=== PATIENT | male | born 1940 | race Caucasian/White ===

== ENCOUNTER 2016-11-25 11:32 | Inpatient (IN) | payer MEDICARE, OTHER ==
[~2016-11-25] VITALS: Ht 190.5 cm; Wt 89.4 kg
[2016-11-25 11:32] VITALS: BP_SYST 120
[~2016-11-25 11:32] MED LIST: AMLO2.5T2 PO; ASPI81TA2 PO; FURO-150 PO; HYDR-4100 PO; HYDR25TA4 PO; MULT-1117 PO; WARF2TAB2 PO; WARF4TAB2 PO
[2016-11-25] MEDS ORDERED: IPRATROPIUM/ALBUTEROL SULFATE 3 ML AMPUL.NEB INH ONE (11:45)
[2016-11-25 12:29] LABS: BLOOD GAS PH 7.451 (7.350-7.450)
[2016-11-25 12:30] LABS: BASOPHILS % (AUTO) 0.3 % (0.0-2.0); EOSINOPHILS # (AUTO) 0.1 K/uL (0.0-0.4); EOSINOPHILS % (AUTO) 1.4 % (0.0-4.0); HEMATOCRIT 31.6 % (36-54); HEMOGLOBIN 10.1 g/dL (14.0-18.0); LYMPHOCYTES # (AUTO) 1.2 K/uL (1.0-5.5); LYMPHOCYTES % (AUTO) 16.8 % (20.5-51.5); MEAN CORPUSCULAR HEMOGLOBIN 30 pg (27-31); MEAN CORPUSCULAR HGB CONC 32 % (32-36); MEAN CORPUSCULAR VOLUME 95 fL (79.0-98.0); MONOCYTES # (AUTO) 0.4 K/uL (0.0-1.0); MONOCYTES % (AUTO) 6.1 % (1.7-9.3); NEUTROPHILS # (AUTO) 5.3 K/uL (1.8-7.7); NEUTROPHILS % (AUTO) 75.4 % (40.0-70.0); RED BLOOD CELL COUNT(AUTO) 3.32 MIL/uL (4.2-6.2); RED CELL DISTRIBUTION WIDTH 13.4 % (9.0-15.0)
[2016-11-25 12:30] LABS: BLOOD GAS BASE EXCESS 13.4 mmol/L (-3.0-3.0); BLOOD GAS COHb% 7.6 % (0.5-1.5); BLOOD GAS HHB 4.3 % (0.0-6.0); BLOOD O2Hb% 87.8 % (94.0-97.0)
[2016-11-25 12:40] LABS: CALCIUM 8.2 mg/dL (8.4-11.0); CHLORIDE 97 mmol/L (98-107); CREATININE 2.12 mg/dL (0.55-1.30); GLUCOSE 110 mg/dL (70-99); POTASSIUM 4.7 mmol/L (3.5-5.1); SODIUM SERUM 134 mmol/L (136-145); UREA NITROGEN, BLOOD 64 mg/dL (8-21)
[2016-11-25 12:43] LABS: ANION GAP < 1 (5-15)
[2016-11-25 12:45] LABS: ALANINE AMINOTRANSFERASE 26 U/L (12-78); ALBUMIN 1.9 g/dL (3.4-4.8); ASPARTATE AMINOTRANSFERASE 47 U/L (10-37); INR 3.2 (0.80-1.20); TOTAL BILIRUBIN 0.2 mg/dL (0.0-1.0); TOTAL PROTEIN, SERUM 5.2 g/dL (6.4-8.3)
[2016-11-25 12:51] LABS: PROTHROMBIN TIME 36.3 SECS (9.5-12.5)
[2016-11-25 12:56] LABS: PLATELET COUNT (AUTO) 85 K/uL (130-430)
[2016-11-25] MEDS ORDERED: methylPREDNISolone SOD SUCC/PF 62.5 MG/ML VIAL IVP ONE (14:30)
[2016-11-25] MEDS ORDERED: DIPHENHYDRAMINE INJ 50 MG/ML VIAL IVP ONE (14:45)
[2016-11-25 15:21] VITALS: BP_SYST 125
[2016-11-25 15:24] VITALS: BP_SYST 129
[2016-11-25] MEDS ORDERED: ALBUTEROL SULFATE 0.083% 2.5 MG/3 ML VIAL.NEB INH PRN (16:00)
[2016-11-25] MEDS ORDERED: IPRATROPIUM BROM 0.5 MG/2.5 ML VIAL.NEB (ATROVENT) INH PRN (16:00)
[2016-11-25] MEDS ORDERED: FUROSEMIDE 40 MG/4 ML VIAL IVP ONE (16:15)
[2016-11-25 17:14] VITALS: BP_SYST 125
[2016-11-25] MEDS ORDERED: BACL20TA PO (17:34)
[2016-11-25] MEDS ORDERED: MONT10TA22 (17:34)
[2016-11-25] MEDS: ALBUTEROL SULFATE 0.083% 2.5 MG/3 ML VIAL.NEB INH SCH ×2 (19:35→23:43)
[2016-11-25] MEDS: IPRATROPIUM BROM 0.5 MG/2.5 ML VIAL.NEB (ATROVENT) INH SCH ×2 (19:35→23:43)
[2016-11-25 19:40] VITALS: BP_SYST 104
[2016-11-25] MEDS: HYDROcodone/ACETAMIN 10-325 MG TAB PO PRN (19:45)
[2016-11-25] MEDS: FUROSEMIDE 40 MG/4 ML VIAL IVP SCH ×2 (21:00→23:18)
[2016-11-25] MEDS ORDERED: FLUTICASONE 250 mCg/SALMETEROL 50 mCg DISKUS W.DEV INH SCH (21:00)
[2016-11-25] MEDS: ONDANSETRON HCL 4 MG/2 ML VIAL IVP PRN (23:17)
[2016-11-26 00:40] VITALS: BP_SYST 122
[2016-11-26] MEDS: HYDROcodone/ACETAMIN 10-325 MG TAB PO PRN ×2 (02:36→18:15)
[2016-11-26] MEDS: ALBUTEROL SULFATE 0.083% 2.5 MG/3 ML VIAL.NEB INH SCH ×6 (03:00→23:00)
[2016-11-26] MEDS: IPRATROPIUM BROM 0.5 MG/2.5 ML VIAL.NEB (ATROVENT) INH SCH ×6 (03:00→23:00)
[2016-11-26 03:43] VITALS: BP_SYST 111
[2016-11-26] MEDS: ASPIRIN 81 MG TAB.CHEW PO SCH (04:22)
[2016-11-26] MEDS: ONDANSETRON HCL 4 MG/2 ML VIAL IVP PRN ×3 (04:56→21:41)
[2016-11-26 07:06] LABS: BASOPHILS % (AUTO) 0.1 % (0.0-2.0); HEMATOCRIT 28.9 % (36-54); HEMOGLOBIN 9.3 g/dL (14.0-18.0); LYMPHOCYTES # (AUTO) 0.6 K/uL (1.0-5.5); LYMPHOCYTES % (AUTO) 11.9 % (20.5-51.5); MEAN CORPUSCULAR HEMOGLOBIN 31 pg (27-31); MEAN CORPUSCULAR HGB CONC 32 % (32-36); MEAN CORPUSCULAR VOLUME 96 fL (79.0-98.0); MONOCYTES # (AUTO) 0.1 K/uL (0.0-1.0); NEUTROPHILS # (AUTO) 4.2 K/uL (1.8-7.7); PLATELET COUNT (AUTO) 83 K/uL (130-430); RED BLOOD CELL COUNT(AUTO) 3.02 MIL/uL (4.2-6.2); WHITE BLOOD COUNT (AUTO) 4.9 K/uL (4.8-10.8)
[2016-11-26 07:44] LABS: PROTHROMBIN TIME 61.4 SECS (9.5-12.5)
[2016-11-26 07:45] LABS: INR 5.4 (0.80-1.20)
[2016-11-26 08:12] VITALS: BP_SYST 120
[2016-11-26 08:12] LABS: CHLORIDE 94 mmol/L (98-107); POTASSIUM 4.1 mmol/L (3.5-5.1); SODIUM SERUM 135 mmol/L (136-145)
[2016-11-26 08:13] LABS: ALANINE AMINOTRANSFERASE 26 U/L (12-78); ASPARTATE AMINOTRANSFERASE 43 U/L (10-37); CALCIUM 7.8 mg/dL (8.4-11.0); GLUCOSE 188 mg/dL (70-99); TOTAL BILIRUBIN 0.1 mg/dL (0.0-1.0); TOTAL PROTEIN, SERUM 4.9 g/dL (6.4-8.3); UREA NITROGEN, BLOOD 66 mg/dL (8-21)
[2016-11-26 08:14] LABS: ALBUMIN 1.7 g/dL (3.4-4.8); THYROID STIMULATING HORMONE 0.97 uIu/mL (0.34-4.82)
[2016-11-26 08:15] LABS: ANION GAP < 3 (5-15)
[2016-11-26] MEDS ORDERED: ONDANSETRON HCL 4 MG/2 ML VIAL IVP ONE (08:15)
[2016-11-26] MEDS: FLUTICASONE/VILANTEROL 1 EACH BLST.W.DEV INH SCH (08:49)
[2016-11-26] MEDS: FUROSEMIDE 40 MG/4 ML VIAL IVP SCH (08:50)
[2016-11-26] MEDS: MULTIVITAMINS TAB 1 TABLET PO SCH (08:50)
[2016-11-26] MEDS: MONTELUKAST 10 MG TABLET PO SCH (08:50)
[2016-11-26] MEDS ORDERED: PHYTONADIONE 5 MG TABLET PO ONE (10:00)
[2016-11-26] MEDS ORDERED: PANTOPRAZOLE SODIUM 40 MG/VIAL (PROTONIX) IVP ONE (10:15)
[2016-11-26] MEDS: MORPHINE 2 MG/ML INJ. SYRINGE IVP PRN ×3 (11:04→21:39)
[2016-11-26 11:42] VITALS: BP_SYST 107
[2016-11-26 17:27] VITALS: BP_SYST 101
[2016-11-26 19:50] VITALS: BP_SYST 113
[2016-11-27 00:07] VITALS: BP_SYST 116
[2016-11-27] MEDS ORDERED: TEMAZEPAM 15 MG CAPSULE PO PRN (00:15)
[2016-11-27] MEDS: MORPHINE 2 MG/ML INJ. SYRINGE IVP PRN ×2 (01:55→06:44)
[2016-11-27] MEDS: ONDANSETRON HCL 4 MG/2 ML VIAL IVP PRN (01:55)
[2016-11-27] MEDS: HYDROcodone/ACETAMIN 10-325 MG TAB PO PRN (04:32)
[2016-11-27 04:58] VITALS: BP_SYST 115
[2016-11-27 06:27] LABS: INR 2.8 (0.80-1.20)
[2016-11-27] MEDS: IPRATROPIUM BROM 0.5 MG/2.5 ML VIAL.NEB (ATROVENT) INH SCH ×3 (07:00→15:00)
[2016-11-27] MEDS: ALBUTEROL SULFATE 0.083% 2.5 MG/3 ML VIAL.NEB INH SCH ×3 (07:00→15:00)
[2016-11-27 07:45] LABS: PROTHROMBIN TIME 31.5 SECS (9.5-12.5)
[2016-11-27 08:00] VITALS: BP_SYST 106
[2016-11-27] MEDS: MONTELUKAST 10 MG TABLET PO SCH (08:24)
[2016-11-27] MEDS: ASPIRIN 81 MG TAB.CHEW PO SCH (08:24)
[2016-11-27] MEDS: MULTIVITAMINS TAB 1 TABLET PO SCH (08:24)
[2016-11-27] MEDS ORDERED: PANTOPRAZOLE SODIUM 40 MG/VIAL (PROTONIX) IVP SCH (09:00)
[2016-11-27] MEDS ORDERED: FUROSEMIDE 40 MG/4 ML VIAL IVP SCH (09:00)
[2016-11-27] MEDS: FLUTICASONE/VILANTEROL 1 EACH BLST.W.DEV INH SCH (10:01)
[2016-11-27 12:18] VITALS: BP_SYST 130
[2016-11-27] MEDS ORDERED: MORPHINE 2 MG/ML INJ. SYRINGE IVP PRN (15:00)
[2016-11-27] MEDS ORDERED: MORPHINE 4 MG/ML INJ. SYRINGE IVP PRN (15:00)
[2016-11-27 15:21] VITALS: BP_SYST 130
[2016-11-27 16:00] VITALS: BP_SYST 109
== END 2016-11-27 17:11 | DRG 291 ==
LOC: SED 11:32 → STU 14:29
PROVIDERS: ADMIT Internal Medicine Hospice and Palliative Medicine; ATTEND Internal Medicine Hospice and Palliative Medicine
DX: I13.0 Hypertensive heart and chronic kidney disease with heart failure and stage 1 through stage 4 chronic kidney disease, or unspecified chronic kidney disease (principal); I50.31 Acute diastolic (congestive) heart failure; E43 Unspecified severe protein-calorie malnutrition; J44.1 Chronic obstructive pulmonary disease with (acute) exacerbation; J96.10 Chronic respiratory failure, unspecified whether with hypoxia or hypercapnia; N18.9 Chronic kidney disease, unspecified; Z99.81 Dependence on supplemental oxygen; F17.200 Nicotine dependence, unspecified, uncomplicated; I27.81 Cor pulmonale (chronic); G89.4 Chronic pain syndrome; M19.90 Unspecified osteoarthritis, unspecified site; K21.9 Gastro-esophageal reflux disease without esophagitis; Z79.01 Long term (current) use of anticoagulants; Z86.718 Personal history of other venous thrombosis and embolism; Z88.0 Allergy status to penicillin; Z79.899 Other long term (current) drug therapy; Z79.82 Long term (current) use of aspirin; Z86.73 Personal history of transient ischemic attack (TIA), and cerebral infarction without residual deficits; Z71.6 Tobacco abuse counseling; Z68.24 Body mass index [BMI] 24.0-24.9, adult
CPT/HCPCS: 36415; 36600; 71010; 76770; 80053; 82803-TC; 83605; 83880; 84443-TC; 84484; 85025; 85610-TC; 85730-TC; 87040-TC; 93005; 93306; 94640; 94760; 96374; 96375; 99285; C9113; J1200; J1940; J2270; J2405; J2930